=== PATIENT | male | born 1960 | race Asian ===

== ENCOUNTER → 2023-09-03 | Outpatient (REF) | payer OTHER ==
[~2023-09-03] MED LIST: IOPAMIDOL 370 MG/ML 100 ML INFUS..BTL INJ ONE
[2023-09-03 14:06] LABS: CREATININE, SERUM 0.93 mg/dL (0.72-1.25)
== END ==
LOC: CT 13:16
PROVIDERS: ATTEND Physician Assistant
DX: B18.1 Chronic viral hepatitis B without delta-agent (principal)
CPT/HCPCS: 36415; 74178; 82565; 84520; Q9967